=== PATIENT | male | born 1945 | race Caucasian/White ===

== ENCOUNTER 2018-06-06 11:30 | Day surgery (SDC) | payer OTHER, MEDICARE ==
[2018-06-06] MEDS ORDERED: LR 1,000 ML IV ONE (12:03)
--- NOTE | 2018-06-06 12:53 | PDGENHP ---
History & Physical Chief Complaint: colon screen History of Present Illness: hx polyps screen Pertinent Past, Social, Family History: no tobacco. alcohol - wine with dinner , matini on weekend. fhx - no colon cancer Relevant Physical Exam: a+ox3. cta. s1s2. +bs, soft, nt Cardiorespiratory Assessment: class 3
--- NOTE | 2018-06-06 12:53 | PDANEPAE ---
ANE History of Present Illness here for colonoscopy ANE Past Medical History - Cardiovascular History Hx Hypertension: Yes Hx Arrhythmias: Yes Hx Chest Pain: No Hx Coronary Artery / Peripheral Vascular Disease: No Hx CHF / Valvular Disease: No Hx Palpitations: No Cardiovascular History Comment: A-FIB/[employer]. PACEMAKER 2013. CARDIOVERSION/ABLATION 2017. US DVT -04/17/18 - Pulmonary History Hx COPD: Yes Hx Asthma/Reactive Airway Disease: No Hx Recent Upper Respiratory Infection: No Hx Oxygen in Use at Home: No Hx Sleep Apnea: Yes Sleep Apnea Screening Result - Last Documented: Positive Pulmonary History Comment: NYDIA USES C-PAP INSTRUCTED TO BRING DOS - Neurologic History Hx Cerebrovascular Accident: No Hx Seizures: No Hx Dementia: No - Endocrine History Hx Diabetes: Yes Endocrine History Comment: NIDDM - Renal History Hx Renal Disorders: No Renal History Comment: PROSTATECTOMY - Liver History Hx Hepatic Disorders: No - Neurological & Psychiatric Hx Hx Neurological and Psychiatric Disorders: Yes Neurological / Psychiatric History Comment: depression/counseling - Cancer History Hx Cancer: Yes Cancer History Comment: PROSTATE - Congenital Disorder History Hx Congenital Disorders: No - GI History Hx Gastrointestinal Disorders: Yes Gastrointestinal History Comment: ACID REFLUX - Other Health History Other Health History: left arm rash. CELULITIS RIGHT LEG 04/17/18 - Chronic Pain History Chronic Pain: Yes (LOWER BACK) - Surgical History Prior Surgeries: PACEMAKER 2012. CARDIOVERSION/ABLATION 2016. RT TOTAL KNEE 2009. RT RTC. hernia repair w/mesh. BAMBI KNEE SCOPE/ACL. RADICAL PROSTATECTOMY. UMBILICAL HERNIA ANE Review of Systems Review of systems is: negative Review of Systems: - Exercise capacity Exercise capacity: >=4 METS METS (RN): 4 METS - Pacemaker Date Pacemaker Last Checked: 11/23/17 ANE Patient History - Allergies Allergies/Adverse Reactions: No Known Allergies Allergy (Verified 05/29/18 18:13) - Home Medications Home medications: home medication list seen and reviewed Home Medications: ALBUTEROL SULFATE 12/08/17 [Last Taken 06/06/18] ALBUTEROL SULFATE 1.25 MG/3 ML 12/08/17 [Last Taken 06/06/18] Aspirin EC 12/08/17 [Last Taken 06/06/18] Bystolic 12/08/17 [Last Taken 06/06/18] Fluticasone Nasal BID 12/08/17 [Last Taken 06/06/18] Furosemide 12/08/17 [Last Taken 06/06/18] Glipizide 12/08/17 [Last Taken 06/06/18] Herbals/Supplements -Info Only DAILY 12/08/17 [Last Taken 06/06/18] Singulair 10 mg (*) HS 12/08/17 [Last Taken 06/06/18] - NPO status NPO Status: no food or drink >8 hours NPO Since - Liquids (Date): 06/06/18 NPO Since - Liquids (Time): 04:00 NPO Since - Solids (Date): 06/05/18 NPO Since - Solids (Time): 09:00 - Smoking Hx Smoking Status: Former smoker - Family Anes Hx Family Hx Anesthesia Complications: none ANE Labs/Vital Signs - Vital Signs Blood Pressure: 146/60 Heart Rate: 68 Respiratory Rate: 18 O2 Sat (%): 92 Height: 185.42 cm Weight: 131.542 kg ANE Physical Exam - Airway Neck exam: FROM, increased neck circumference Mallampati Score: Class 2 - Pulmonary Pulmonary: no respiratory distress - Cardiovascular Cardiovascular: regular rate and rhythym - ASA Status ASA Status: III ANE Anesthesia Plan Anesthesia Plan: GA with mask
[2018-06-06] MEDS ORDERED: PROPOFOL/EMULSION 500 MG/50 ML BOTTLE IV ONE ×3 (13:03→13:47)
[2018-06-06] MEDS ORDERED: fentaNYL 100 MCG/2 ML INJ ONE (13:12)
[2018-06-06] MEDS ORDERED: PHENYLEPHRINE HCL 100 MCG/ML SYR ONE (13:15)
[2018-06-06] MEDS ORDERED: ALBUTEROL 3 ML DEYVIAL IH PRN (13:58)
[2018-06-06] MEDS ORDERED: NALOXONE HCL 0.4 MG/ML INJ IVP PRN (13:58)
[2018-06-06] MEDS ORDERED: ONDANSETRON 4 MG/2 ML VIAL IVP PRN (13:58)
[2018-06-06] MEDS ORDERED: LR 500 ML IV PRN (13:58)
[2018-06-06] MEDS ORDERED: fentaNYL 100 MCG/2 ML INJ IVP PRN (13:58)
--- NOTE | 2018-06-06 14:13 | GIREPORT ---
[facility] - Endoscopy Department Patient Name: Michael Nick Procedure Date: 06/06/2018 1:05 PM Patient Type: Outpatient Attending MD/ ER Physician: Héctor Russell MD Procedure: Colonoscopy Indications: High risk colon cancer surveillance: Personal history of non-advanced a denoma Providers: Héctor Russell MD Referring MD: Alexandria Carlton MD Medicines: Propofol per Anesthesia = IV general with spont resps Complications: No immediate complications. Estimated blood loss: Minimal. Description of Procedure: After obtaining informed consent, the scope was passed under direct vis ion. Throughout the procedure, the patient's blood pressure, pulse, and oxyg en saturations were monitored continuously. The Colonoscope with irrigatio n channel was introduced through the anus and advanced to the terminal il eum, with identification of the appendiceal orifice and IC valve. The colono scopy was technically difficult and complex due to a redundant colon, signifi cant looping and the patient's body habitus. Successful completion of the procedure was aided by using manual pressure, straightening and shorten ing the scope to obtain bowel loop reduction and receiving assistance from additional staff. The patient tolerated the procedure well. The quality of the bowel preparation was good. Findings: The digital rectal exam was normal. The terminal ileum appeared normal. A 2 mm polyp was found in the ascending colon. The polyp was sessile. T he polyp was removed with a cold biopsy forceps. Resection and retrieval w ere complete. Estimated blood loss was minimal. Two semi-sessile polyps were found in the mid transverse colon. The osiris yps were 4 to 6 mm in size. These polyps were removed with a cold snare. Po lyp resection was incomplete. The resected tissue was retrieved. Estimated blood loss was minimal. Estimated blood loss was minimal. A few medium-mouthed diverticula were found in the sigmoid colon and descending colon. The exam was otherwise without abnormality. Estimated Blood Loss: Estimated blood loss was minimal. Post Op Diagnosis: - The examined portion of the ileum was normal. - One 2 mm polyp in the ascending colon, removed with a cold biopsy for ceps. Resected and retrieved. - Two 4 to 6 mm polyps in the mid transverse colon, removed with a cold snare. Incomplete resection. Resected tissue retrieved. - Diverticulosis in the sigmoid colon and in the descending colon. - The examination was otherwise normal. Recommendation: - Await pathology results. - My office will call with the pathology result with 5-7 days. If you h ave not heard from my office by 12-14, do not assume the pathology is jasen l, please call [phone] to get the pathology results. - Repeat colonoscopy in 3 years for surveillance. If the ascending colo n polyp is not adenomatous then the interval is 5 years - High fiber diet indefinitely. - 30-35 grams of dietary fiber per day. Can use supplemental fiber. - A high fiber diet may decrease risk of complications from diverticulo sis. There is no need to avoid seeds or nuts. - Patient has a contact number available for emergencies. The signs and symptoms of potential delayed complications were discussed with the pat carlota. Return to normal activities tomorrow. Written discharge instructions we re provided to the patient. - Continue present medications. - Discharge patient to home (ambulatory). - Return to primary care physician as previously scheduled. - Thank you for allowing me to help in your patient's care. Do not hesi shah to call with any questions. Attending Participation: I personally performed the entire procedure. Drew Murray M.D Héctor Russell MD 06/06/2018 2:13:18 PM This report has been signed electronicallyMatthew MD Drew Number of Addenda: 0 Note Initiated On: 06/06/2018 1:05 PM Total Procedure Duration Time 0 hours 35 minutes 34 seconds [email or web address]
--- NOTE | 2018-06-06 14:45 | POSTANESTH ---
Post Anesthetic Evaluation Cardiovascular Status: Normal, Stable Respiratory Status: Normal, Stable Level of Consciousness/Mental Status: Can Participate in Eval Pain Control: Adequate, Prn Tx Ordered Nausea/Vomiting Control: Adequate, Prn Tx Ordered Complications Possibly Related to Anesthesia: None Noted
[2018-06-06 15:22] VITALS: BP 120/57
== END 2018-06-06 15:40 | disposition home or self-care (01) ==
LOC: FSGY 11:30
PROVIDERS: ATTEND Internal Medicine Gastroenterology
DX: Z12.11 Encounter for screening for malignant neoplasm of colon (principal); D12.2 Benign neoplasm of ascending colon; D12.3 Benign neoplasm of transverse colon; K57.30 Diverticulosis of large intestine without perforation or abscess without bleeding; Q43.8 Other specified congenital malformations of intestine; I48.91 Unspecified atrial fibrillation; G47.33 Obstructive sleep apnea (adult) (pediatric); E11.9 Type 2 diabetes mellitus without complications; Z86.718 Personal history of other venous thrombosis and embolism; Z85.46 Personal history of malignant neoplasm of prostate; Z87.891 Personal history of nicotine dependence; Z86.010 Personal history of colon polyps; Z95.0 Presence of cardiac pacemaker; Z96.651 Presence of right artificial knee joint
CPT/HCPCS: J2370; J2704; J3010